=== PATIENT | female | born 1990 | race Hispanic/Latino ===

== ENCOUNTER 2017-06-23 14:40 | Emergency (ER) | payer OTHER ==
[~2017-06-23] VITALS: Ht 157.5 cm; Wt 77.3 kg
[~2017-06-23 14:40] MED LIST: PREN1TAB69 PO
[2017-06-23 15:01] VITALS: BP 110/73; PULSE 79; RESP 18; O2SAT 99
[2017-06-23 15:25] VITALS: BP 106/71; PULSE 75; RESP 18; O2SAT 100
--- NOTE | 2017-06-23 16:10 | ED.REPORT ---
HPI-Dental/Mouth Prob Date of Service Jun 23, 2017 ED Provider: Gumaro Marr MD History of Present Illness: wisdom tooth extracted 2 days ago. pain increased last night. tooth pulled in [place]. was taking ibuptrofen. returning to [place] on Monday. 07/11 Nursing Notes Stated Complaint: POSSIBLE DENTAL INFECTION, POST OP Chief Complaint: Dental Nursing Notes Reviewed: Yes Allergies: Coded Allergies: No Known Allergies (Unverified Allergy, Unknown, 06/23/17) Scheduled Vit/Fe Fumarate/Fa-Expunged Drug, Do (-Expunged Drug, Do Not Renew!) 1 Each Tablet 1 EACH PO DAILY General Time Seen by MD: 15:42 Chief Complaint Mouth pain Hx Obtained From: Patient Severity: Current: Pain level 10 out of 10 Past Medical History Past Medical History Reports: Asthma Past Surgical History denies Smoking History Never Smoker Social History Alcohol Use: "Social" Drug Use: Denies drug use Other Social History: Occupation 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 4 year old in [place] no work or school 06/23/2017 Review of Systems Basic Review of Systems Eyes: Vision NL, No discharge Hematologic: No bleeding, No bruising Psychiatric: Normal thought content Ears / Nose / Throat: Denies: Voice change Physical Exam Initial Vital Signs Vital Signs (First) Date Time Temp Pulse Resp B/P Pulse Ox O2 Delivery O2 Flow Rate FiO2 06/23/17 15:01 36.9 79 18 110/73 99 Room Air Initial VS: Reviewed, Vital signs normal General/Constitutional: Well-developed, Well-nourished Head / Eyes: Atraumatic, Normocephalic, PERRL Respiratory: Breath sounds normal, Clear to auscultation, No respiratory distress Cardiovascular: Regular rate & rhythm, Heart sounds normal, Intact distal pulses Abdomen / GI: Soft, Non-tender, No guarding, No rebound, No distention Back: No CVA tenderness Lymphatic: No lymphadenopathy Extremities: Vascular intact, Neuro intact, No swelling, No tenderness Skin: Warm, Dry, No cyanosis Neurologic: Alert, Oriented, Nonfocal Psychiatric: Mood/affect normal, Behavior normal, Normal thought content mild facial swelling on right side of face, no sign of cellulitis. Neck: Atraumatic, Supple, No meningismus, Full range of motion, No adenopathy General/Constitutional: Awake, Alert, No acute distress Respiratory / Chest: Atraumatic, Breath sounds NL, Breath sounds = bilat, No respiratory distress Cardiovascular: Heart rate NL, Regular rhythm, Heart sounds NL, No gallop Interpretation & Diagnostics Lab Results Interpretation Result Diagram: 06/23/17 1715 06/23/17 1755 Test 06/23/17 17:15 06/23/17 17:55 White Blood Count 8.2th/mm3 (3.8-10.1) Red Blood Count 4.26mil/mm3 (3.90-5.20) Hemoglobin 12.2g/dL (12.0-15.6) Hematocrit 35.0% (35.0-46.0) Mean Corpuscular Volume 82.2fL (81-100) Mean Corpuscular Hemoglobin 28.6pg (27.0-35.0) Mean Corpuscular Hemoglobin Concent 34.9% (32.0-37.0) Red Cell Distribution Width 12.9% (12.3-15.4) Platelet Count 224bil/L (150-400) Neutrophils (%) (Auto) 62.9% (40-74) Lymphocytes (%) (Auto) 27.0% (14-46) Monocytes (%) (Auto) 6.7% (4-12) Eosinophils (%) (Auto) 3.1% (0-5) Basophils (%) (Auto) 0.2% (0-3) Sodium Level 139mEq/L (134-144) Potassium Level 3.4mEq/L (3.5-5.2) Chloride Level 101mEq/L (97-108) Carbon Dioxide Level 21mmol/L (18-29) Blood Urea Nitrogen 10mg/dL (6-20) Creatinine 0.50mg/dL (0.57-1.00) Estimat Glomerular Filtration Rate 210mL/min (>59) Glucose Level 82mg/dL (60-99) Calcium Level 9.2mg/dL (8.5-10.1) Total Bilirubin 0.3mg/dL (0.0-1.2) Aspartate Amino Transf (AST/SGOT) 15U/L (0-50) Alanine Aminotransferase (ALT/SGPT) 14U/L (0-32) Alkaline Phosphatase 53U/L (25-150) Total Protein 7.4g/dL (6.4-8.4) Albumin 4.0g/dL (3.4-5.0) Hold Vela Top Tube Received (Received) Re-Eval/Medical Decision Med Decision/Clinical Course 27 year old female presents for evualation of pain after dental extraction. Labs are normal. No sign of dry socket or cellulitis. Paitent with good response to toradol and clindamycin. Encouraged follow up on return to [facility] Discharge & Departure Primary Impression: Toothache Disposition: Home Patient Instructions: Acute Dental Trauma (ED) Additional Instructions: Your white count is normal. You have had a decrease in your pain and swelling with the antibiotics and toradol. I am sure the ice has been helpful also. Your metabolic panel is pending. If we can get your phone number I will call you if there are any abnormalities. Continue with the ice, 15 minutes on and 15 minutes off for 2 to 3 days. Continue with clindamycin 300 mg 4 times a day for 10 days. Use ketorolac 10 mg up to 4 times a day as needed for pain and swelling. Can use hydrocodone 1 at night as needed for severe unrelenting pain. Please follow with your dentist on return to [place] Referrals: OTHER,PHYSICIAN EDSupervising Provider for APC: Gumaro Marr MD Attending Statement I saw and evaluated the patient in conjunction with the [employer] ALL AROUND. I agree with the plan and findings as documented above. In brief, 27-year-old female presenting to the ED for evaluation with dental pain. Well appearing, no acute distress. Nonlabored respirations. Good peripheral perfusion. RRR. No trismus, no signs of cellulitis, dry socket, or other infection. Given above, plan discharge home w/ careful return precautions , close outpatient follow up. Patient agreeable to plan as stated, no further questions. copies to: OTHER,PHYSICIAN Regla Rizo Jun 23, 2017 16:10 Gumaro Marr MD Jun 23, 2017 16:14
[2017-06-23] MEDS ORDERED: Clindamycin Inj 900 MG in IV Premix 1 EACH IV ONE (16:45)
[2017-06-23 17:44] LABS: BASOPHILS % (AUTO) 0.2 % (0-3); EOSINOPHILS % (AUTO) 3.1 % (0-5); MONOCYTES % (AUTO) 6.7 % (4-12); Mean Corpuscular Hemoglobin 28.6 pg (27.0-35.0); Mean Corpuscular Volume 82.2 fL (81-100); NEUTROPHILS % (AUTO) 62.9 % (40-74); Platelet Count 224 bil/L (150-400)
[2017-06-23 18:24] VITALS: BP 106/71; PULSE 75; RESP 18; O2SAT 100
== END 2017-06-23 18:25 | disposition home or self-care (01) ==
LOC: SED 14:40
DX: K08.89 Other specified disorders of teeth and supporting structures (principal); J45.909 Unspecified asthma, uncomplicated; Z98.818 Other dental procedure status
CPT/HCPCS: 36415; 80053; 85025; 96365; 96375; 99284; J1885; J3490